=== PATIENT | female | born 1995 | race Caucasian/White ===

== ENCOUNTER 2016-09-23 16:17 | Emergency (ER) | payer OTHER ==
[~2016-09-23] VITALS: Ht 154.9 cm; Wt 72.7 kg
[2016-09-23 16:17] VITALS: BP 112/64; TEMP 98
[~2016-09-23 16:17] MED LIST: ALLEGRA ALLERGY60 MG PO; AMOXICILLIN 50500 MG PO; AMOXICILLIN 8751 TAB PO; BIRTH CONTROL; BIRTH CONTROL PILL; CALCI-CHEW500 MG PO; GILDESS FE 1.5/1 TAB PO; NAPROSYN 2250 MG/TAB PO; NORCO 325 MG-51 TAB PO; NORCO 325 MG-7.1 TAB PO; ROXICODONE 55 MG/TAB PO; TUSS PO; VYVANSE30 MG PO; ZYRTEC 10MG10 MG PO; ZYRTEC5 MG PO
[2016-09-23 18:30] VITALS: PULSE 92
== END 2016-09-23 18:31 | disposition home or self-care (01) ==
LOC: COL.ER 16:17
DX: S29.012A Strain of muscle and tendon of back wall of thorax, initial encounter (principal); V48.5XXA Car driver injured in noncollision transport accident in traffic accident, initial encounter; Y92.410 Unspecified street and highway as the place of occurrence of the external cause

== ENCOUNTER 2017-01-29 07:00 | Emergency (ER) | payer OTHER, BC ==
[~2017-01-29] VITALS: Ht 154.9 cm; Wt 70.5 kg
[2017-01-29 07:02] VITALS: BP 106/71; PULSE 70; TEMP 98.4
[2017-01-29] MEDS ORDERED: [UNRECOGNIZED DRUG - OTHER] (07:05)
== END 2017-01-29 08:14 | disposition home or self-care (01) ==
LOC: COL.ER 07:00
DX: S80.01XA Contusion of right knee, initial encounter (principal); S80.02XA Contusion of left knee, initial encounter; V40.0XXA Car driver injured in collision with pedestrian or animal in nontraffic accident, initial encounter; Y92.410 Unspecified street and highway as the place of occurrence of the external cause

== ENCOUNTER → 2018-02-15 | Outpatient (CLI) | payer BC ==
[~2018-02-15] MED LIST changes: +PREDNISONE20 MG PO; +[UNRECOGNIZED DRUG - OTHER]
[2018-02-15 12:17] LABS: BASO % 0.2 % (0.0-2.0); EOS # 0.1 (0.0-0.7); EOS % 1.1 % (0-4.0); GRAN # 5.8 (1.4-6.5); GRAN % 69.3 % (42.2-75.2); HEMATOCRIT 39.3 % (37.0-47.0); HEMOGLOBIN 12.8 g/dl (12.5-16.0); LYMPH # 1.9 (1.2-3.4); LYMPH % 22.9 % (20.0-51.0); MEAN CELL VOLUME 96 fl (80.0-100.0); MEAN CORPUSCULAR HEMOGLOBIN 31 pg (27.0-31.0); MEAN CORPUSCULAR HGB CONC 33 g/dl (33.0-37.0); MEAN PLATELET VOLUME 11.8 fl (7.4-10.4); MONO # 0.5 (0.1-0.6); MONO % 6.3 % (1.7-9.3); PLATELET COUNT 210 K/mm3 (130-400); RED BLOOD COUNT 4.08 M/mm3 (4.10-5.30); REDCELL DISTRIBUTION WIDTH-CV 11.5 % (11.5-14.5)
[2018-02-15 12:27] LABS: ALANINE AMINOTRANSFERASE 30 U/L (9-52); ALKALINE PHOSPHATASE 51 U/L (50-136); ANION GAP 10 mmol/L (7-16); AST,SGOT 20 U/L (15-37); BILIRUBIN,TOTAL 0.3 mg/dL (0.0-1.0); BLOOD UREA NITROGEN 11 mg/dL (7-17); CALCIUM 9.2 mg/dL (8.4-10.2); CARBON DIOXIDE 29 mmol/L (22-30); CHLORIDE 97 mmol/L (98-107); GLUCOSE 89 mg/dL (74-106); POTASSIUM 3.7 mmol/L (3.4-5.0); SODIUM 137 mmol/L (137-145); TOTAL PROTEIN 7.1 gm/dL (6.4-8.2)
[2018-02-15 12:47] LABS: HCG,QUANTITATIVE < 2 mIU/mL (0-5)
[2018-02-15 12:51] LABS: ERYTHROCYTE SEDIMENTATION RATE 7 mm/hr (0-20)
== END ==
LOC: COL.RAD 11:15
PROVIDERS: Nurse Practitioner Family
DX: M79.9 Soft tissue disorder, unspecified (principal); N20.0 Calculus of kidney; R10.33 Periumbilical pain
CPT/HCPCS: Q9967

== ENCOUNTER 2018-02-26 10:36 | Day surgery (SDC) | payer BC ==
[~2018-02-26] VITALS: Ht 154.9 cm; Wt 75.4 kg
[~2018-02-26 10:36] MED LIST changes: +BLISOVI FE 1.51 EACH PO; +MACROBID 1100 MG/CAP PO
[2018-02-26 10:55] VITALS: BP 116/72; PULSE 80; TEMP 98.2
[2018-02-26] MEDS ORDERED: PREDNISONE 5MG5 MG PO (10:59)
[2018-02-26 12:00] VITALS: BP 108/71; PULSE 74; TEMP 98.6
[2018-02-26 12:15] VITALS: BP 114/81; PULSE 71
[2018-02-26 12:30] VITALS: BP 103/72; PULSE 73
== END 2018-02-26 12:46 | disposition home or self-care (01) ==
LOC: SDCO 10:36
DX: K92.1 Melena (principal)
CPT/HCPCS: J2250; J3010; J7030